=== PATIENT | female | born 1985 | race Caucasian/White ===

== ENCOUNTER 2021-10-04 11:56 | Emergency (ER) | payer OTHER ==
[2021-10-04 12:08] VITALS: BP 150/102
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
[2021-10-04] MEDS ORDERED: IBUPROFEN 600 MG TABLET PO STA (13:14)
[2021-10-04] MEDS: HYDROcod/ACETAM 5/325 MG TABLET PO STA ×2 (13:36→13:59)
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
== END 2021-10-04 14:31 | disposition home or self-care (01) ==
LOC: ED 11:56
DX: S39.012A Strain of muscle, fascia and tendon of lower back, initial encounter (principal); S16.1XXA Strain of muscle, fascia and tendon at neck level, initial encounter; V49.40XA Driver injured in collision with unspecified motor vehicles in traffic accident, initial encounter
CPT/HCPCS: 71250; 72125; 72131; 99283; 99284; A9270

== ENCOUNTER 2022-01-16 16:37 | Outpatient (CLI) | payer OTHER ==
--- NOTE | 2022-01-17 08:33 | XRAY Report ---
PROCEDURE: Cervical Spine w/Flex/Ext INDICATIONS: NECK PAIN TECHNIQUE: 7 views of the cervical spine were acquired. COMPARISON: None. FINDINGS: Bones: No fractures or dislocations to the C7-T1 level. No suspicious bony lesions. There is glory l range of motion between flexion and extension, with preserved normal bony alignment. No significant bony foraminal stenosis is seen on oblique views. Soft tissues: Prevertebral soft tissues are normal in thickness. IMPRESSION: Unremarkable radiographic examination of cervical spine. Normal range of motion on later al flexion and extension views. No bony foraminal stenosis is seen oblique views. Reviewed by: Sang Aguayo MD on 01/17/2022 8:32 AM PDT Approved by: Sang Aguayo MD on 01/17/2022 8:32 AM PDT Station ID: [id number]
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
== END 2022-01-16 16:38 | disposition home or self-care (01) ==
LOC: DI.S 16:37
PROVIDERS: ATTEND Chiropractor
DX: S13.8XXA Sprain of joints and ligaments of other parts of neck, initial encounter (principal); S33.6XXA Sprain of sacroiliac joint, initial encounter; S23.3XXA Sprain of ligaments of thoracic spine, initial encounter